=== PATIENT | male | born 2000 | race Hispanic/Latino ===

== ENCOUNTER 2023-07-05 17:40 | Emergency (ER) | payer BC ==
[2023-07-05] MEDS ORDERED: Bacitracin 1 PK ONE (19:54)
[2023-07-05] MEDS ORDERED: Acetaminophen 500 MG TAB ONE (19:54)
[2023-07-05] MEDS ORDERED: Cephalexin 500 MG CAP ONE (19:54)
[2023-07-05] MEDS ORDERED: Lidocaine 1% w/Epinephrine 1:100K 20 ML VIAL ONE (19:54)
== END 2023-07-05 21:58 | disposition home or self-care (01) ==
LOC: MADERS 17:40
DX: S81.811A Laceration without foreign body, right lower leg, initial encounter (principal); W26.8XXA Contact with other sharp object(s), not elsewhere classified, initial encounter
CPT/HCPCS: 12002